=== PATIENT | female | born 1980 | race Asian ===

== ENCOUNTER 2016-08-24 21:55 | Inpatient (IN) | payer OTHER ==
[2016-08-25 01:16] LABS: Hematocrit 37 % (35-47); Hemoglobin 12.3 g/dl (12.0-16.0); Mean Corpuscular HGB Conc 33 g/dl (31-36); Mean Corpuscular Hemoglobin 30 pg (27-31); Mean Corpuscular Volume 91 fL (80-97); Mean Platelet Volume 9 um3 (7.4-10.4); Red Blood Count 4.08 10^6/ul (4.0-5.4); Red Cell Distribution Width 15 % (10.5-15); White Blood Count 9.4 10^3/ul (3.5-10.8)
[2016-08-25] MEDS ORDERED: Oxytocin in LR* 20 UNITS/1,000 ML BAG IVPB ONE (07:24)
[2016-08-25] MEDS ORDERED: Oxytocin in LR* 20 UNITS/1,000 ML BAG IVPB SCH ×2 (08:00→19:00)
[2016-08-25] MEDS: Levothyroxine TAB* 25 MCG TAB PO SCH (08:53)
[2016-08-25] MEDS ORDERED: OBEPIDURAL* 250 ML ONE (09:29)
[2016-08-25] MEDS ORDERED: Phenylephrine IV* 40 MCG/ML 10 ML SYRINGE IV PUSH PRN ×2 (10:11)
[2016-08-25] MEDS ORDERED: Sodium Citrate/Citric Acid* 15 ML UDC PO PRN (10:11)
[2016-08-25] MEDS ORDERED: EPHEDrine (Pressors)* 50 MG/ML VIAL IV PUSH PRN ×2 (10:11)
[2016-08-25] MEDS ORDERED: Famotidine TAB* 20 MG PO PRN (10:11)
[2016-08-25] MEDS ORDERED: OBEPIDURAL* 250 ML EPIDURAL SCH (11:00)
[2016-08-25] MEDS ORDERED: Gentamicin ADULT (*) 40 MG/ML VIAL IVPB ONE (12:34)
[2016-08-25] MEDS ORDERED: GENTAMICIN ADULT IVPB ONE (13:00)
[2016-08-25] MEDS ORDERED: NS 0.9% IVPB ONE (13:00)
[2016-08-25] MEDS ORDERED: Mineral Oil Sterile, TOPICAL* 25 ML BTL ONE (16:56)
[2016-08-25] MEDS ORDERED: Misoprostol TAB* 200 MCG ONE (18:04)
[2016-08-25] MEDS ORDERED: Glycerin ADULT SUPP PR PRN (18:55)
[2016-08-25] MEDS ORDERED: Misoprostol TAB* 200 MCG PR ONE (18:55)
[2016-08-25] MEDS ORDERED: Acetaminophen TAB* 325 MG PO PRN (18:55)
[2016-08-25] MEDS ORDERED: Dibucaine 1% 28.35 GM TUBE PR PRN (18:55)
[2016-08-25] MEDS ORDERED: oxyCODONE/Acetamin 5/325 MG* TAB PO PRN (18:55)
[2016-08-25] MEDS ORDERED: Witch Hazel PAD* JAR TOPICAL PRN (18:55)
[2016-08-25] MEDS ORDERED: Hydrocortisone 1% CREAM* 30 GM TUBE TOPICAL PRN (18:58)
[2016-08-25] MEDS: Docusate CAP* 100 MG PO SCH (21:36)
[2016-08-26 06:43] LABS: Hematocrit 29 % (35-47); Hemoglobin 9.8 g/dl (12.0-16.0); Mean Corpuscular HGB Conc 33 g/dl (31-36); Mean Corpuscular Hemoglobin 30 pg (27-31); Mean Corpuscular Volume 91 fL (80-97); Mean Platelet Volume 9 um3 (7.4-10.4); Red Blood Count 3.24 10^6/ul (4.0-5.4); Red Cell Distribution Width 15 % (10.5-15); White Blood Count 14.5 10^3/ul (3.5-10.8)
[2016-08-26] MEDS: Levothyroxine TAB* 25 MCG TAB PO SCH (08:16)
[2016-08-26] MEDS: Docusate CAP* 100 MG PO SCH ×3 (08:17→19:52)
[2016-08-26] MEDS: Ferrous Gluconate TAB* 324 MG TAB PO SCH ×2 (08:17→19:52)
[2016-08-26] MEDS: Ibuprofen TAB* 600 MG PO PRN ×2 (08:17→14:28)
[2016-08-27 07:42] VITALS: BP 114/63
[2016-08-27] MEDS: Levothyroxine TAB* 25 MCG TAB PO SCH (08:31)
[2016-08-27] MEDS: Docusate CAP* 100 MG PO SCH (08:31)
[2016-08-27] MEDS: Ferrous Gluconate TAB* 324 MG TAB PO SCH (08:32)
== END 2016-08-27 13:10 | disposition home or self-care (01) | DRG 775 ==
LOC: MCHOBOUT 21:55 → MCHOB 22:19
PROVIDERS: ADMIT Midwife; ATTEND Nurse Practitioner
PROC: 10E0XZZ Delivery of Products of Conception, External Approach (ICD-10-PCS; principal; 2016-08-25)
PROC: 0KQM0ZZ Repair Perineum Muscle, Open Approach (ICD-10-PCS; 2016-08-25)
DX: O99.284 Endocrine, nutritional and metabolic diseases complicating childbirth (principal); E03.9 Hypothyroidism, unspecified; O70.1 Second degree perineal laceration during delivery; O90.81 Anemia of the puerperium; D64.9 Anemia, unspecified; Z3A.38 38 weeks gestation of pregnancy; Z37.0 Single live birth
CPT/HCPCS: 36415; 85025; 86850; 86900; 86901; A9270-GY; J0290; J1580